=== PATIENT | male | born 1945 | race Caucasian/White ===

== ENCOUNTER 2016-11-25 13:46 | Emergency (ER) | payer MEDICARE, OTHER ==
[2016-11-25] MEDS ORDERED: KETOROLAC TROMETHAMINE 30 MG/ML VIAL IM ONE (14:19)
[2016-11-25] MEDS ORDERED: ORPHENADRINE CITRATE 30 MG/ML VIAL IM ONE (14:19)
--- NOTE | 2016-11-25 14:21 | ERNOTE ---
Back Pain ER HPI Presenting Symptoms: injury/pain to back Time Seen by Provider: 11/25/16 14:16 Source: patient Immunizations: IMMUNIZATION HX Immunizations Up to Date No History of Influenza Vaccine No Hx Pneumococcal Vaccination No Allergies/Adverse Reactions: Allergies metformin Allergy (Verified 11/25/16 15:19) morphine Allergy (Verified 11/25/16 15:20) prednisone Allergy (Verified 11/25/16 15:20) tetracycline Allergy (Verified 11/25/16 15:20) codeine Adverse Reaction (Verified 11/25/16 15:19) Home Medications: HOME MEDICATIONS Cyclobenzaprine HCl [Flexeril] 10 mg PO TID PRN #30 tab 11/25/16 [Last Taken Unknown] Naproxen [Naprosyn] 500 mg PO BID #60 tablet 11/25/16 [Last Taken Unknown] traMADol HCL [Ultram] 50 mg PO QID PRN #20 tablet 11/25/16 [Last Taken Unknown] Narrative: Patient attempted to lift something and he states it was quite heavy and felt a strain in his left lower back area. Patient now has muscle spasms in his low back area and difficulty bending. Timing: Reports: constant Quality/Severity: Reports: moderate Location of pain: Reports: lower back Activities at Onset: Reports: other - heavy lifting Recent Injury?: Reports: no Modifying Factors - (Improves): Reports: nothing Review of Systems - Review of Systems Constitutional: Present: See HPI EYE: Present: no symptoms reported ENT: Present: no symptoms reported Respiratory: Present: no symptoms reported Cardiology: Present: no symptoms reported Gastrointestinal/Abdominal: Present: no symptoms reported Genitourinary: Present: no symptoms reported Musculoskeletal: Present: See HPI, muscle pain Skin: Present: no symptoms reported Neurological: Present: no symptoms reported Endocrine: Present: no symptoms reported Hematologic/Lymphatic: Present: no symptoms reported Psych: Present: no symptoms reported - Patient's Past Medical History Patient History - Medical: Diabetes Type 2 Patient History - Cardiac/Respiratory: History Unknown Patient History - Cancer: History Unknown Patient History - Surgical Procedures: Back Surgery - in the 70's Patient History - Other: None - Social History Living Situations: home Abuse History: No History of abuse Psych History: No pertinent hx Smoking Status: Current every day smoker Have you smoked in the past 12 months: Yes Alcohol Use: none Drug Use: none - Immunizations Immunizations Up to Date: No Hx Pneumococcal Vaccination: No History of Influenza Vaccine: No Physical Exam - Physical Exam General Appearance: Present: wd/wn, alert, moderate distress Eye Exam: Normal inspection: bilateral, PERRL: bilateral Ears, Nose, Throat: Present: normal ENT inspection, H, normal pharynx Neck: Present: normal inspection, nontender Respiratory: Present: no respiratory distress, normal breath sounds, no accessory muscle use, chest nontender, lungs clear Cardiovascular/Chest: Present: regular rate, rhythm, no murmur, normal peripheral pulses Gastrointestinal/Abdominal: Present: normal bowel sounds, nontender, nondistended, soft, no organomegaly Rectal Exam: Present: deferred Back Exam: Present: decreased range of motion, muscle spasm Extremity Exam: Present: normal inspection, non-tender, normal range of motion, no edema, other - chronic open wound in the right foot secondary to his diabetes Neurological Exam: Present: alert, oriented, normal mood/affect Skin Exam: Present: normal color, warm/dry Lymphatic Exam: Present: no adenopathy ED Progress - Vital Signs Patient's Vital Signs:: I have reviewed the patient's vital signs. Vital Signs: Vital Signs 11/25/16 13:52 Temperature 37.1 C Pulse Rate 70 Respiratory 18 Rate Blood Pressure 121/58 O2 Sat by Pulse 95 Oximetry - X-Ray X-Ray #1 X-Ray: lumbosacral Interpretation: Reviewed by me - Progress/Reassessment Chief Complaint: Back Pain Progress:: Improved Plan - Plan Plan: Patient has a long-standing history of low back pain. Roughly 40 years ago patient had fusion surgery done in the lumbar spine, and continues to have low- grade pain intermittently over that time. Patient was given a nonsteroidal and a muscle relaxer here in the emergency department and felt better. Follow-up with his family doctor in the event that he needs another MRI, we will send him home with more nonsteroidals and warm muscle relaxers to help give him more relief at home. Departure Clinical Impression: Low back pain Qualifiers: Chronicity: acute Back pain laterality: left Sciatica presence: without sciatica Qualified Code(s): M54.5 - Low back pain - Departure Condition: Good Instructions: Back Pain, Adult, [id number] Referrals: Dmitri Poole MD [Primary Care Provider] - Prescriptions: Cyclobenzaprine HCl [Flexeril] 10 mg PO TID PRN #30 tab PRN Reason: MUSCLE SPASMS Naproxen [Naprosyn] 500 mg PO BID #60 tablet traMADol HCL [Ultram] 50 mg PO QID PRN #20 tablet PRN Reason: Moderate Pain
--- OUTSIDE RECORDS SUMMARY | 2016-11-25 14:26 | XMS REPORT | Continuity of Care Document ---
:1945 Author Organization [facility] ([facility]) Address [address] [place] [address] Phone [phone] Care Team Providers Name Role Phone Dmitri Poole Primary Care Provider [phone] Source Comments This disclosure is being made pursuant to the Care Everywhere program, applicable federal and state laws, and may not contain all informaitonavailable regarding this patient.[facility] ([facility]) Active Allergies and Adverse Reactions Allergen Noted Date Severity Reactions Comments Codeine OTHER "violent reaction; destroys things" Tetracycline Urticaria (Hives) Current Medications Not on file Active Problems Problem Noted Date Type II or unspecified type diabetes mellitus without mention of 04/20/2008 complication, uncontrolled Social History Tobacco Use Types Packs/Day Years Used Date Never Assessed Last Filed Vital Signs Vital Sign Reading Time Taken Blood Pressure 162/84 04/15/2008 4:00 PM CDT Pulse 64 04/15/2008 4:00 PM CDT Temperature 36.6 C (97.88 F) 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 Respiratory Rate 20 04/15/2008 4:00 PM CDT Height - - Weight 128.599 kg (283 lb 8.2 oz) 04/15/2008 4:00 PM CDT Body Mass Index - - Oxygen Saturation - - Plan of Care Health Maintenance Due Date Last Done Comments Hepatitis B Vaccine (1 of 3 - Primary Series) 1945 Tdap Vaccine 1954 DIABETIC: Cholesterol 1961 Diabetic: Hdl 1961 DIABETIC: Hemoglobin A1C 1961 Diabetic: Ldl 1961 DIABETIC: Microalbumin 1961 DIABETIC: Triglycerides 1961 Td Vaccine 1961 Colonoscopy 05/02/1993 Prostate Cancer Screening 1993 Zoster Vaccine 2003 Pneumococcal Vaccine (1 of 2 - PCV13) 2008 DIABETIC: Foot Exam 12/18/2010 DIABETIC: Retinal Eye Exam 12/18/2010 [facility] Annual Coding Paraplegia 07/07/2015 Influenza Vaccine: Seasonal (#1) 02/05/2016 Results from Last 3 Months Not on file
[2016-11-25] MEDS ORDERED: ORPHENADRINE CITRATE 30 MG/ML VIAL ONE (14:38)
[2016-11-25] MEDS ORDERED: KETOROLAC TROMETHAMINE 60 MG/2 ML VIAL IM ONE (14:38)
[2016-11-25 16:20] VITALS: BP 124/62
== END 2016-11-25 16:10 | disposition home or self-care (01) ==
LOC: ER 13:46
DX: M54.9 Dorsalgia, unspecified (principal); X50.0XXA Overexertion from strenuous movement or load, initial encounter; Y93.9 Activity, unspecified; Y92.9 Unspecified place or not applicable; Z72.0 Tobacco use

== ENCOUNTER 2017-03-24 13:19 | Day surgery (SDC) | payer MEDICARE, OTHER ==
[2017-03-24 13:33] VITALS: BP 126/62
[2017-03-24] MEDS ORDERED: TROPICAMIDE 150 DROP BTL OP ONE (13:40)
== END 2017-03-24 13:20 | disposition home or self-care (01) ==
LOC: AMB 13:19
PROVIDERS: ATTEND Ophthalmology
PROC: 085J3ZZ Destruction of Right Lens, Percutaneous Approach (ICD-10-PCS; principal; 2017-03-24 14:40)
DX: H26.491 Other secondary cataract, right eye (principal); E11.9 Type 2 diabetes mellitus without complications; F17.200 Nicotine dependence, unspecified, uncomplicated; Z68.38 Body mass index [BMI] 38.0-38.9, adult

== ENCOUNTER 2017-05-27 12:33 | Emergency (ER) | payer MEDICARE, OTHER ==
[2017-05-27] MEDS ORDERED: NORMAL SALINE 1,000 ML IV ONE ×2 (12:47→14:15)
[2017-05-27 13:05] LABS: Hematocrit 34.6 % (42.0-52.0); Hemoglobin 11.6 gm/dL (13.5-18.0); Mean Cell Volume 85.9 fl (78-100); Mean Corpuscular Hemoglobin 28.8 pg (27-31); Mean Corpuscular Hgb Conc 33.5 g/dl (32-36); Mean Platelet Volume 10.5 fl (6.0-9.5); Platelet Count 82 K/mm3 (150-450); Red Blood Count 4.03 M/mm3 (4.7-6.0)
[2017-05-27 13:07] LABS: Total Cells Counted 100
[2017-05-27 13:23] LABS: Troponin I Less than 0.017 ng/ml (0.00-0.10)
[2017-05-27 13:25] LABS: ALT 25 U/L (19-67); AST 16 U/L (0-48); Albumin * 3.5 gm/dl (3.4-5.0); Alkaline Phosphatase * 54 U/L (50-170); Anion Gap 12.9 mmol/L (6.8-13.8); BUN/Creatinine Ratio 6.3 (9.0-21.6); Bilirubin, Total 0.4 mg/dL (0.0-1.1); Blood Urea Nitrogen 28 mg/dL (6-23); Ca. Corrected For Albumin 9.4 mg/dL (8.4-10.2); Calcium * 9.3 mg/dL (7.9-10.9); Carbon Dioxide 28.8 mmol/L (24-32.6); Chloride 104 mmol/L (97-106); Glucose * 83 mg/dL (70-110); Potassium 3.7 mmol/L (3.4-4.6); Sodium 142 mmol/L (132-142); Total Protein 6.8 gm/dL (6.2-8.2)
[2017-05-27 13:33] LABS: Atypical (Reactive) Lymph 4 % (0-2); Band 1 % (0-2.0); Eosinophil 2 % (0-3); Immature Granulocyte 1 (0-1); Lymphocyte 45 % (20-51); Monocyte 14 % (0-9); Neutrophil 33 % (42-75); Neutrophil # 0.7 K/mm3 (1.3-6.0); Smudge Cells 10 /100 WBC (0-0)
[2017-05-27 13:34] LABS: Platelet Estimate Decreased (NORMAL)
[2017-05-27 13:36] LABS: Basophilic Stippling Trace; Polychromasia Trace
[2017-05-27 13:37] LABS: Anisocytosis Trace
[2017-05-27 15:30] LABS: Urine Bilirubin Negative (NEGATIVE); Urine Blood 50 /ul (NEGATIVE); Urine Ketone Negative (NEGATIVE); Urine Nitrite Negative (NEGATIVE); Urine Protein Negative (NEGATIVE); Urine Urobilinogen Normal (NORMAL); Urine pH 5.5 pH (5.0-7.0)
[2017-05-27 15:42] VITALS: BP 128/73
[2017-05-27 15:43] LABS: Urine Appearance Clear; Urine Bacteria 3+; Urine Color Yellow; Urine WBC None Seen /hpf (0-5)
--- NOTE | 2017-05-27 16:18 | ERNOTE ---
Medical Problem HPI - Narrative Date of Service: 05/27/17 - General Chief Complaint: Diabetes Related Problem Time Seen by Provider: 05/27/17 12:42 Source: patient Exam Limitations: no limitations - Immun/Allergies/Home Medications Immunizations: IMMUNIZATION HX Immunizations Up to Date No History of Influenza Vaccine No Hx Pneumococcal Vaccination No Allergies/Adverse Reactions: Allergies metformin Allergy (Verified 05/27/17 12:41) morphine Allergy (Verified 05/27/17 12:41) prednisone Allergy (Verified 05/27/17 12:41) tetracycline Allergy (Verified 05/27/17 12:41) codeine Adverse Reaction (Verified 05/27/17 12:41) Home Medications: HOME MEDICATIONS Cyclobenzaprine HCl [Flexeril] 10 mg PO TID PRN #30 tab 11/25/16 [Last Taken Unknown] Naproxen [Naprosyn] 500 mg PO BID #60 tablet 11/25/16 [Last Taken Unknown] traMADol HCL [Ultram] 50 mg PO QID PRN #20 tablet 11/25/16 [Last Taken Unknown] Amiodarone HCl [Cordarone] 200 mg PO DAILY 05/27/17 [Last Taken Unknown] Divalproex Sodium [Depakote ER] 500 mg PO BID 05/27/17 [Last Taken Unknown] Furosemide [Lasix] 80 mg PO DAILY 05/27/17 [Last Taken Unknown] Gabapentin 300 mg PO DAILY 05/27/17 [Last Taken Unknown] Gabapentin [Neurontin] 600 mg PO DAILY 05/27/17 [Last Taken Unknown] Insulin Glargine,Hum.rec.anlog [Lantus] 55 units SC HS 05/27/17 [Last Taken Unknown] Levothyroxine Sodium [Synthroid] 137 mcg PO DAILY 05/27/17 [Last Taken Unknown] Pravastatin Sodium 40 mg PO DAILY 05/27/17 [Last Taken Unknown] QUEtiapine FUMARATE [Seroquel] 50 mg PO DAILY 05/27/17 [Last Taken Unknown] Rivaroxaban [Xarelto] 15 mg PO DAILY 05/27/17 [Last Taken Unknown] Tamsulosin HCl [Flomax] 0.4 mg PO DAILY@1800 05/27/17 [Last Taken Unknown] Zolpidem Tartrate [Ambien] 10 mg PO HS PRN 05/27/17 [Last Taken Unknown] glipiZIDE [Glipizide] 10 mg PO DAILY 05/27/17 [Last Taken Unknown] - History of Present History Narrative: Patient presents to the ED via EMS for lightheadedness. He relates his blood sugars were high this am. He took his home insulin. He has been feeling dizzy/ lightheaded for 2 days. no vomiting, no diarrhea or blood in the stools. No vertigo. Worse when he stands up. He denies CP or SOB. no fever or recent illnesses. Has not seen anyone else for this. No acute focal N/T/W. Timing: intermittent Severity: moderate Modifying Factors - (Improves): Present: other - nothign Modifying Factors - (Worsens): Present: other - standing up Review of Systems - Review of Systems Constitutional: Absent: fever ENT: Absent: sore throat Respiratory: Absent: shortness of breath Cardiology: Absent: chest pain Gastrointestinal/Abdominal: Absent: abdominal pain Genitourinary: Absent: dysuria Musculoskeletal: Present: no symptoms reported Skin: Absent: rash Neurological: Absent: headache, weakness Endocrine: Present: See HPI - Patient's Past Medical History Patient History - Medical: Diabetes Type 2 Patient History - Cardiac/Respiratory: History Unknown Patient History - Cancer: History Unknown Patient History - Surgical Procedures: Back Surgery Patient History - Other: None - Social History Living Situations: home Abuse History: No History of abuse Psych History: No pertinent hx Alcohol Use: none Drug Use: none - Immunizations Immunizations Up to Date: No Hx Pneumococcal Vaccination: No History of Influenza Vaccine: No Physical Exam - Physical Exam General Appearance: Present: alert, no apparent distress Head Exam: Present: normal inspection, no evidence of injury Eye Exam: Normal inspection: bilateral, PERRL: bilateral Ears, Nose, Throat: Present: dry mucous membranes. 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 Absent: facial droop, motor weakness Skin Exam: Present: normal color, warm/dry ED Progress - Results and Orders Patient's Lab Results:: I have reviewed the patient's lab results. - Vital Signs Patient's Vital Signs:: I have reviewed the patient's vital signs. Vital Signs: Vital Signs 05/27/17 05/27/17 05/27/17 12:37 14:05 14:24 Temperature 36.0 C L Pulse Rate 70 69 70 Respiratory 12 12 12 Rate Blood Pressure 121/57 140/64 137/71 O2 Sat by Pulse 92 99 99 Oximetry 05/27/17 05/27/17 15:13 15:40 Temperature Pulse Rate 71 70 Respiratory 16 11 L Rate Blood Pressure 136/70 128/73 O2 Sat by Pulse 98 98 Oximetry - EKG EKG read: Interp. by me EKG Comments: Paced. Non-specific ST/T wave changes, no clear evidence of STEMI. - Progress/Reassessment Chief Complaint: Diabetes Related Problem Progress Note-Subjective: 05/27/17 16:15 The patient received 2L NS. I recommend he stay in the hospital but he refused this. I felt strongly he should stay so I will sign him out AMA. He understands risks of and disability and understands that he is leaving against medical advice. He understands that his kidney function requires him to stay in the hospital. I stressed that he needs to see his doctor TOMORROW since he will not stay as I have recommended. Departure Clinical Impression: Dehydration, Creatinine elevation - Departure Disposition: Against medical advice Condition: Undetermined Instructions: Dehydration, Adult, Gvrp-[id number] Additional Instructions: You are leaving against medical advice. I recommend you be admitted to the hospital. Drink plenty of fluids. See your doctor tomorrow for a re-check. Return if you change your mind about being admitted as I have recommended, develop pain, weakness or if your condition worsens or changes in any way.
== END 2017-05-27 16:03 | disposition left against medical advice (07) ==
LOC: ER 12:33
DX: E86.0 Dehydration (principal); R94.4 Abnormal results of kidney function studies; E11.9 Type 2 diabetes mellitus without complications; Z53.21 Procedure and treatment not carried out due to patient leaving prior to being seen by health care provider

== ENCOUNTER 2017-08-25 12:15 | Emergency (ER) | payer MEDICARE, MEDICAID ==
[2017-08-25] MEDS ORDERED: DEXTROSE 50%-WATER 50 ML SYRG ONE (12:21)
[2017-08-25] MEDS ORDERED: DEXTROSE 50%-WATER 50 ML SYRG IV ONE (12:26)
--- NOTE | 2017-08-25 12:50 | ERNOTE ---
Neuro HPI ER Record Presenting Symptoms: weakness Time Seen by Provider: 08/25/17 12:24 Source: patient Exam Limitations: no limitations Immunizations: IMMUNIZATION HX Immunizations Up to Date No History of Influenza Vaccine No Hx Pneumococcal Vaccination No Allergies/Adverse Reactions: Allergies Allergy/AdvReac Type Severity Reaction Status Date / Time metformin Allergy Verified 05/27/17 12:41 morphine Allergy Verified 05/27/17 12:41 prednisone Allergy Verified 05/27/17 12:41 tetracycline Allergy Verified 05/27/17 12:41 codeine AdvReac Verified 05/27/17 12:41 Home Medications: HOME MEDICATIONS Cyclobenzaprine HCl [Flexeril] 10 mg PO TID PRN #30 tab 11/25/16 [Last Taken Unknown] Naproxen [Naprosyn] 500 mg PO BID #60 tablet 11/25/16 [Last Taken Unknown] traMADol HCL [Ultram] 50 mg PO QID PRN #20 tablet 11/25/16 [Last Taken Unknown] Amiodarone HCl [Cordarone] 200 mg PO DAILY 05/27/17 [Last Taken Unknown] Divalproex Sodium [Depakote ER] 500 mg PO BID 05/27/17 [Last Taken Unknown] Furosemide [Lasix] 80 mg PO DAILY 05/27/17 [Last Taken Unknown] Gabapentin 300 mg PO DAILY 05/27/17 [Last Taken Unknown] Gabapentin [Neurontin] 600 mg PO DAILY 05/27/17 [Last Taken Unknown] Insulin Glargine,Hum.rec.anlog [Lantus] 55 units SC HS 05/27/17 [Last Taken Unknown] Levothyroxine Sodium [Synthroid] 137 mcg PO DAILY 05/27/17 [Last Taken Unknown] Pravastatin Sodium 40 mg PO DAILY 05/27/17 [Last Taken Unknown] QUEtiapine FUMARATE [Seroquel] 50 mg PO DAILY 05/27/17 [Last Taken Unknown] Rivaroxaban [Xarelto] 15 mg PO DAILY 05/27/17 [Last Taken Unknown] Tamsulosin HCl [Flomax] 0.4 mg PO DAILY@1800 05/27/17 [Last Taken Unknown] Zolpidem Tartrate [Ambien] 10 mg PO HS PRN 05/27/17 [Last Taken Unknown] glipiZIDE [Glipizide] 10 mg PO DAILY 11/21/17 [Last Taken Unknown] - History of Present Illness Narrative: Patient states that approximately 10 hours prior to arrival, at roughly 2:00 in the morning, patient got up to go to the bathroom and felt as though his chronic left-sided weakness was a little worse. Patient had a stroke 3 weeks ago and has had left-sided weakness ever since that event. Onset: upon waking, continues in ER Severity: mild - Character of Deficits New weakness: Present: other - patient has chronic left-sided weakness although he thought it was a little bit worse Additional Deficits: Present: decrease ability to walk Baseline Cognition: Present: alert, oriented x 4 Baseline Gait: Present: uses a cane/walker Associated Symptoms: Reports: none Prior Treament: Reports: recently seen, treated by physician, recently hospitalized, similar symptoms before Review of Systems - Review of Systems Constitutional: Present: See HPI EYE: Present: no symptoms reported ENT: Present: no symptoms reported Respiratory: Present: no symptoms reported Cardiology: Present: no symptoms reported Gastrointestinal/Abdominal: Present: no symptoms reported Genitourinary: Present: no symptoms reported Musculoskeletal: Present: no symptoms reported Skin: Present: no symptoms reported Neurological: Present: See HPI Endocrine: Present: no symptoms reported Hematologic/Lymphatic: Present: no symptoms reported Psych: Present: no symptoms reported - Patient's Past Medical History Patient History - Medical: Diabetes Type 2, Other - CVA 3 weeks ago Patient History - Cardiac/Respiratory: History Unknown Patient History - Cancer: History Unknown Patient History - Surgical Procedures: Appendectomy, Back Surgery, Cataracts, Colonoscopy, Pacemaker, Total Knee Replacement Patient History - Other: None - Family History Mother Family History - Medical: , Diabetes Type 2 Insulin Dependent Family History - Cardiac/Respiratory: CVA/Stroke Family History - Cancer: No pertinent family hx Father Family History - Medical: History Unknown Sister Family History - Medical: History Unknown - Social History Abuse History: No History of abuse Psych History: No pertinent hx - Immunizations Immunizations Up to Date: No Hx Pneumococcal Vaccination: No History of Influenza Vaccine: No Physical Exam - Physical Exam General Appearance: Present: wd/wn, alert, no apparent distress Eye Exam: Normal inspection: bilateral, PERRL: bilateral Ears, Nose, Throat: Present: normal ENT inspection, H, normal pharynx Neck: Present: normal inspection, nontender Respiratory: Present: no respiratory distress, normal breath sounds, no accessory muscle use, chest nontender, lungs clear Cardiovascular/Chest: Present: regular rate, rhythm, no murmur, normal peripheral pulses Gastrointestinal/Abdominal: Present: normal bowel sounds, nontender, nondistended, soft, no organomegaly Rectal Exam: Present: deferred Back Exam: Present: normal inspection, normal range of motion Extremity Exam: Present: normal inspection, non-tender, no edema, normal range of motion Neurological Exam: Present: alert, oriented, normal mood/affect, other - chronic left-sided weakness, unclear if it is exacerbated Skin Exam: Present: normal color, warm/dry Lymphatic Exam: Present: no adenopathy Lupe Coma Scale - Assess Eye Opening: Spontaneous Motor: Obeys Commands Verbal: Oriented - Total Coma Scale Total: 15 ED Progress - Results and Orders Patient's Lab Results:: I have reviewed the patient's lab results. - Vital Signs Patient's Vital Signs:: I have reviewed the patient's vital signs. Vital Signs: Vital Signs 08/25/17 12:20 Temperature 36.6 C Pulse Rate 71 Respiratory 15 Rate O2 Sat by Pulse 99 Oximetry - EKG EKG: other - paced rhythm EKG read: Interp. by me - X-Ray X-Ray #1 X-Ray: chest Interpretation: Reviewed by me - CT/Ultrasound CT/Ultrasound Narrative: CT the head was reviewed by me and discussed with radiologist - Progress/Reassessment Chief Complaint: CerebroVascular Accident Plan - Plan Plan: Patient had a blood sugar of 62, which is low for him. Given 1 amp of D50 here in the emergency department and all of the symptoms resolved. I suspect that this was a hypoglycemic event that exacerbated the underlying chronic neurologic deficit. Patient is safe to go to the annex for his vancomycin infusion. Departure Clinical Impression: Hypoglycemia - Departure Disposition: Home self-care Condition: Good Instructions: Hypoglycemia, [id number]
[2017-08-25 12:57] LABS: Hematocrit 31.1 % (42.0-52.0); Hemoglobin 10.4 gm/dL (13.5-18.0); Mean Cell Volume 85.2 fl (78-100); Mean Corpuscular Hemoglobin 28.5 pg (27-31); Mean Corpuscular Hgb Conc 33.4 g/dl (32-36); Neutrophil # 1.6 K/mm3 (1.3-6.0); Neutrophil % 60.3 % (42-75.0); Platelet Count 103 K/mm3 (150-450); Red Blood Count 3.65 M/mm3 (4.7-6.0); Red Cell Distribution Width 14.1 % (11.5-14.0); White Blood Count 2.7 K/mm3 (4.0-10.5)
[2017-08-25 13:00] LABS: Prothrombin Time (Patient) 12.4 Seconds (9.0-11.0)
[2017-08-25 13:03] LABS: Anion Gap 13.3 mmol/L (6.8-13.8); Bilirubin, Total 0.3 mg/dL (0.0-1.1); Ca. Corrected For Albumin 8.6 mg/dL (8.4-10.2); Calcium * 8.1 mg/dL (7.9-10.9); Carbon Dioxide 28.7 mmol/L (24-32.6); Total Protein 6.2 gm/dL (6.2-8.2)
[2017-08-25] MEDS ORDERED: traMADol HCL 50 MG TABLET PO ONE (13:05)
[2017-08-25 13:11] LABS: INR 1.24 INR (0.90-1.10); Partial Thrombolplastin Time 32.8 Seconds (24-32)
[2017-08-25] MEDS ORDERED: traMADol HCL 50 MG TABLET ONE (13:15)
[2017-08-25 14:05] VITALS: BP 121/60
== END 2017-08-25 13:55 | disposition home or self-care (01) ==
LOC: ER 12:15
DX: E11.649 Type 2 diabetes mellitus with hypoglycemia without coma (principal); I63.9 Cerebral infarction, unspecified; Z79.4 Long term (current) use of insulin